=== PATIENT | female | born 1995 | race Caucasian/White ===

== ENCOUNTER → 2017-12-13 10:55 | Outpatient (CLI) | payer OTHER, SELFPAY ==
--- NOTE | 2017-12-13 | IMM_PTH ---
PATIENT: BARRY GUEVARA LOC: [facility] U#:[id number] AGE/SX: 30/F ROOM: RE12/13/[address]: Dr. Janet Solis MD : 1995 BED: DIS: SPEC #: [id number] RECD: 12/14/17 15:39 STATUS: FUNMI RENandini #: [id number] JESSI: 12/13/17 00:[address]: Janet Solis DEPT: IMMUNOHISTOCHEMISTRY RECD BY: Deana Mejía ENTERED: 12/14/17 15:40 SP TYPE: IMMUNO OTHR DR: Dr. Jorge Allred MD Tissues: A - Uterine cervix, NOS Procedures: p16 (initial) KI-67 (add) PHYSICIAN & INSTITUTION [place] [id number] SPECIMEN INFORMATION: Tissue Source: A ? Cervical biopsy Clinical Info: R87.612 Specimen Number: [id number] CPT code: 61202, 04315 METHODOLOGY: Deparaffinized sections of prefer/formalin-fixed tissue or PAP/DQ stained slides are incubated with monoclonal/polyclonal antibodies/oligonucleotide probes. Localization is made via biotin free immunoperoxidase method. Appropriate controls are performed and reacted as expected. Results on target cell population are indicated in the following table: RESULTS: ANTIBODY / CLONE RESULT Block A P16 (E6H4) Positive, block-like Ki-67 (30-9) Positive, moderate These tests were developed and their performance characteristics determined by [facility]. They may not have been cleared or approved by the U.[place]. Food and Drug Administration. The FDA has determined that such clearance or approval is not necessary. INTERPRETATION: A. Cervix, biopsy: Focal moderate squamous dysplasia, TOM II (HGSIL). AM:stephane 12/15/17
--- NOTE | 2017-12-13 09:00 | CER_PTH ---
PATIENT: BARYR GUEVARA LOC: [facility] U#:[id number] AGE/SX: 30/F ROOM: RE12/13/[address]: Dr. Janet Solis MD : 1995 BED: DIS: SPEC #: [id number] RECD: 12/13/17 14:37 STATUS: FUNMI CLAIRENandini #: [id number] JESSI: 12/13/17 09:[address]: Janet Solis DEPT: SURGICAL PATHOLOGY RECD BY: Juanito Burgos ENTERED: 12/13/17 14:37 SP TYPE: CERV OTHR DR: Dr. Jorge Allred MD Tissues: A - Uterine cervix, NOS B - Endocervical Procedures: Surgery Specimen Level IV HEADER OPERATION: Colposcopy PRE-OP DIAGNOSIS: R87.612 TISSUE SUBMITTED: A ? Cervical biopsy, B - ECC MICROSCOPIC DIAGNOSIS A. Cervix, biopsy: Mild and focal moderate dysplasia, TOM I-II (HGSIL). Squamous metaplasia and chronic inflammation. B. Endocervix, curettings: Scant strips of benign superficial endocervix. AM:stephane 12/14/17 COMMENT A. Results from Immunohistochemistry study ([id number]) for surrogate HPV marker p16, will be reported separately. MICROSCOPIC DESCRIPTION Slides are reviewed. GROSS DESCRIPTION A - Received in fixative is one container labeled with the patient's name and designated cervical biopsy. The specimen consists of two irregular fragments of light cerrato soft tissue that in aggregate measure 0.6 x 0.3 x 0.1 cm. The specimen is totally submitted in one cassette. B - Received in fixative is one container labeled with the patient's name and designated ECC. The specimen consists of light cerrato mucoid material that in aggregate measures 1 x 0.2 x <0.1 cm. The specimen is totally submitted in one cassette. / AM:stephane 12/13/17 TC:3 CPT: 12922 x2
== END ==
PROVIDERS: Family Provider Family Medicine; PCP Family Medicine; Visit Provider Obstetrics & Gynecology
DX: R87.612 Low grade squamous intraepithelial lesion on cytologic smear of cervix (LGSIL) (principal)
CPT/HCPCS: 88305; 88341; 88342

== ENCOUNTER 2017-12-24 12:56 | Day surgery (SDC) | payer OTHER, SELFPAY ==
[2017-12-24] VITALS (10 sets, daily range): BP systolic 93–112; BP diastolic 48–63; PULSE 68–89; RESP 14–20; TEMP 36.8–37.3; O2SAT 97–100; BMI 20.9
[2017-12-24 13:27] LABS: Internal QC Validated? YES +Cl - CLEAR BKGD
[2017-12-24 13:28] LABS: Pregnancy, Urine Negative Negative
[2017-12-24] MEDS: Vasopressin 20 UNITS/ML Vial (14:00)
--- NOTE | 2017-12-24 14:30 | CER_PTH ---
PATIENT: BARRY GUEVARA LOC: [facility] U#:[id number] AGE/SX: 22/ ROOM: RE12/24/[address]: Dr. Janet Solis MD : 1995 BED: DIS: 12/24/2017 SPEC #: [id number] RECD: 12/24/17 15:56 STATUS: FUNMI ANIVAL #: [id number] JESSI: 12/24/17 14:[address]: Janet Solis DEPT: SURGICAL PATHOLOGY RECD BY: Juanito Burgos ENTERED: 12/27/17 08:23 SP TYPE: CERV OTHR DR: Dr. Jorge Allred MD Tissues: Uterine cervix, NOS Procedures: Surgery Specimen Level V HEADER OPERATION: LEEP cone with ECC PRE-OP DIAGNOSIS: Low-grade squamous intraepithelial lesion on cytological smear of cervix TISSUE SUBMITTED: Ectocervix and endocervix MICROSCOPIC DIAGNOSIS Ectocervix and endocervix, LEEP conization: Minimal changes suspicious for HPV cytopathic effects. Chronic inflammation and squamous metaplasia. Resection margins are free of dysplastic changes. IRMA:stephane 12/28/17 COMMENT Please make reference to previous specimen ([id number]) cervix, biopsy with diagnosis of mild and focal moderate squamous dysplasia and endocervix, curettings with diagnosis of scant strips of benign superficial endocervix. MICROSCOPIC DESCRIPTION Slides are reviewed. GROSS DESCRIPTION Received in fixative is one container labeled with the patient's name and designated ectocervix and endocervix. The specimen consists of an unoriented piece of cerrato, indurated tissue consistent with LEEP conization measuring 1.6 x 1.2 cm and up to 0.8 cm in length. The cervical opening is slit-like. No mucosal lesion is identified. The nonmucosal surface is inked black and the endocervical margin is inked blue. The specimen is serially sectioned and submitted entirely in four cassettes with each cassette containing one quadrant. / IRMA:stephane 12/27/17 TC:5 [facility]: [id number]
[2017-12-24] MEDS: FERRIC SUBSULFATE 8 GM SOLN (15:04)
--- NOTE | 2017-12-24 15:10 | PCM.DC.LEE ---
Discharge Diet: No Restrictions - Increase water to 120 ounces daily x 72 hours Discharge Activity: Return to Normal Activity, May not drive while taking narcotic pain medications. Return to work on:: 12/27/17 May shower in (days): 0 - Today May resume sexual activity in: 3 weeks Weight Bearing Status: Full weight bearing Lifting Restrictions: none Additional Activity Instructions:: Ambulate often the week after surgery Call your doctor if you observe: Fever of 101 or Higher, Inability to urinate, Inability to have a bowel movement, Using more than one pad per hour Cleanse incision/area with: Soap & Water Allergies/Adverse Reactions: Allergies No Known Allergies Allergy (Unverified 12/20/17 08:11) Medications to take at Discharge NK [NK] 12/20/17 Primary Care Physician: Blaise Allred MD [Primary Care Provider] - Please Follow Up With: Janet Solis MD When: 1 week postop
--- NOTE | 2017-12-24 15:22 | PCM.OPRPT ---
Problem List (1) Cervical dysplasia Status: Acute Report of Operation Date of Procedure: 12/24/17 Pre-Operative Diagnosis: Moderate cervical dysplasia Post-Operative Diagnosis: Moderate cervical dysplasia Surgery/Procedure Performed:: Loop electrocautery excision of the cervix, endocervical curettage Description of Surgical Findings:: Nulligravida appearing cervix. The uterus was noted in an anteflexed position. Bilateral adnexa were benign. Lugol's application to the cervix revealed lack of stain uptake around the 6:00 region. Type of Anesthesia:: Local Anesthesiologist: Steven Galdamez Special Medications: 10 cc of diluted vasopressin to the cervix and 10 cc of 1% lidocaine to the cervix Specimen's removed: Ectocervix and endocervix Drains: None Estimated Blood Loss (mL): Minimal Fluids Replaced: Lactated Ringer's Description of Procedure: The patient presented to the surgery suite in the n.p.o. status. Patient was placed on the operating bed and underwent a MAC anesthetic. Once found to be adequate, the patient was placed in the dorsal lithotomy position via the Charly stirrups. The patient was prepped and draped in the normal sterile fashion. Bladder was emptied of urine which equals approximately 200 cc of clear urine via a straight catheter. Patient was draped followed by placement of a Myron-coated bivalve speculum to the vagina with suction attachment. The cervix had injection of 10 cc of 1 1% lidocaine to the 4 quadrants of the cervix as well as 10 cc of a diluted vasopressin to the cervix as well. Tolerated well. Lugol's staining of the cervix occurred to allow notation of area of removal. The LEEP was assembled and sequential movement of the top layer of the cervix occurred. Hemostasis was noted. The working curette device was then used to remove endocervical tissue which was sent away with the ectocervix which had been removed previously. The ball cautery was then used to cauterize the edges of the prior LEEP sampling of the cervix. Stasis was noted. Cells was placed of the cervix as well. Meds were removed from the vagina. Sponge, instrument counts and suture were correct ?2. Awakened in stable condition to be taken to recovery room for discharge later today. Grafts/Implants Used: None - Complications None - Admit VTE Documentation VTE Present on Admission: No VTE Mechan Device Prophylaxis: [facility] VTE Pharm Prophylaxis ordered?: No Reason prophylaxis not ordered:: Treatment Not Indicated
--- NOTE | 2017-12-24 15:29 | OP.PCM_ITS ---
Problem List (1) Cervical dysplasia Status: Acute Report of Operation Date of Procedure: 12/24/17 Pre-Operative Diagnosis: Moderate cervical dysplasia Post-Operative Diagnosis: Moderate cervical dysplasia Surgery/Procedure Performed:: Loop electrocautery excision of the cervix, endocervical curettage Description of Surgical Findings:: Nulligravida appearing cervix. The uterus was noted in an anteflexed position. Bilateral adnexa were benign. Lugol's application to the cervix revealed lack of stain uptake around the 6:00 region. Type of Anesthesia:: Local Anesthesiologist: Steven Galdamez Special Medications: 10 cc of diluted vasopressin to the cervix and 10 cc of 1% lidocaine to the cervix Specimen's removed: Ectocervix and endocervix Drains: None Estimated Blood Loss (mL): Minimal Fluids Replaced: Lactated Ringer's Description of Procedure: The patient presented to the surgery suite in the n.p.o. status. Patient was placed on the operating bed and underwent a MAC anesthetic. Once found to be adequate, the patient was placed in the dorsal lithotomy position via the Charly stirrups. The patient was prepped and draped in the normal sterile fashion. Bladder was emptied of urine which equals approximately 200 cc of clear urine via a straight catheter. Patient was draped followed by placement of a Myron- coated bivalve speculum to the vagina with suction attachment. The cervix had injection of 10 cc of 1 1% lidocaine to the 4 quadrants of the cervix as well as 10 cc of a diluted vasopressin to the cervix as well. Tolerated well. Lugol 's staining of the cervix occurred to allow notation of area of removal. The LEEP was assembled and sequential movement of the top layer of the cervix occurred. Hemostasis was noted. The working curette device was then used to remove endocervical tissue which was sent away with the ectocervix which had been removed previously. The ball cautery was then used to cauterize the edges of the prior LEEP sampling of the cervix. Stasis was noted. Cells was placed of the cervix as well. Meds were removed from the vagina. Sponge, instrument counts and suture were correct ?2. Awakened in stable condition to be taken to recovery room for discharge later today. Grafts/Implants Used: None - Complications None - Admit VTE Documentation VTE Present on Admission: No VTE Mechan Device Prophylaxis: [facility] [place]TE Pharm Prophylaxis ordered?: No Reason prophylaxis not ordered:: Treatment Not Indicated
== END 2017-12-24 17:04 | disposition home or self-care (01) ==
LOC: SDC 12:57 → AC 12:58
PROVIDERS: Anesthesiology; Family Provider Family Medicine; PCP Family Medicine; Visit Provider Obstetrics & Gynecology
PROC: 0UBC7ZZ Excision of Cervix, Via Natural or Artificial Opening (ICD-10-PCS; CPT 57522; principal; 2017-12-24 14:15)
DX: N87.1 Moderate cervical dysplasia (principal)
CPT/HCPCS: 57522; 81025; 88307; J7120; J2405

== ENCOUNTER → 2018-03-09 13:38 | Outpatient (CLI) | payer SELFPAY ==
[2018-03-16 11:14] LABS: HPV Reflexed? NOT INDICATED
== END ==
LOC: LABSPEC 13:41
PROVIDERS: Visit Provider Obstetrics & Gynecology
DX: R87.612 Low grade squamous intraepithelial lesion on cytologic smear of cervix (LGSIL) (principal)
CPT/HCPCS: 88175; G0145

== ENCOUNTER → 2018-07-20 16:08 | Outpatient (CLI) | payer SELFPAY ==
[2018-07-26 10:53] LABS: HPV Reflexed? NOT INDICATED
== END ==
LOC: LABSPEC 16:09
PROVIDERS: Visit Provider Obstetrics & Gynecology
DX: R87.613 High grade squamous intraepithelial lesion on cytologic smear of cervix (HGSIL) (principal)
CPT/HCPCS: 88175; G0145

== ENCOUNTER → 2022-11-05 | Outpatient (CLI) | payer OTHER, SELFPAY ==
[2022-11-05 13:09] LABS: NATERA MAILED SPECIMEN
[2022-11-05 13:40] LABS: Absolute Lymphocyte Count 1.56 X10^3/uL (0.83-4.51); Absolute Neutrophil Count 8.5 X10^3/uL (2.0-7.7); Basophil# 0.04 X10^3/uL; Basophil% 0.4 % (0-1); Eosinophil# 0.07 X10^3/uL; Eosinophils% 0.7 % (0-5); Hematocrit 45.8 % (37-47); Hemoglobin 15.9 g/dL (12.0-15.0); Lymphocyte # 1.56 X10^3/ul (0.83-4.51); Lymphocyte % 14.7 % (19-41); Mean Corp Hgb Conc 34.7 g/dL (32-36); Mean Corpuscular Hgb 31.5 pg (27.0-32.0); Mean Corpuscular Volume 90.9 fL (81-99); Mean Platelet Vol. 10.4 fl (6.2-12.0); Monocyte# 0.43 X10^3/uL; Monocyte% 4.1 % (0-10); NRBC Flagged by Analyzer 0 % (0-5); Neutrophil # 8.45 X10^3/uL (2.7-7.7); Neutrophil % 79.8 % (47-70); Platelet Count 352 K/mm3 (150-450); RBC Distribution Width SD 40.4 fl (35.1-43.9); Red Blood Count 5.04 M/mm3 (4.2-5.4); White Blood Count 10.6 K/mm3 (4.4-11.0)
[2022-11-05 14:43] LABS: HIV - WCH Non-Reactive (Nonreactive); Hepatitis B Surface Antigen Non-Reactive (Nonreactive); Hepatitis C Antibody Non-Reactive (Nonreactive); Rubella IgG Reactive (Nonreactive); Syphilis Antibodies Non-reactive
[2022-11-10 08:04] LABS: Chlamydia By Nucleic Acid AMP Negative (Negative)
[2022-11-11 21:16] LABS: HPV Reflexed? NOT INDICATED
[2022-11-12 21:40] LABS: Gonococcus By Nucleic Acid AMP Negative (Negative)
== END | disposition home or self-care (01) ==
PROVIDERS: Referring Provider Obstetrics & Gynecology; Visit Provider Obstetrics & Gynecology
DX: Z34.90 Encounter for supervision of normal pregnancy, unspecified, unspecified trimester (principal)
CPT/HCPCS: 36415; 85025; 86703; 86762; 86780; 86803; 86850; 86900; 86901; 87086; 87088; 87340; 87491; 87591; 88175; G0145

== ENCOUNTER → 2022-12-31 | Outpatient (CLI) | payer OTHER, SELFPAY ==
[2022-12-31 13:34] VITALS: BP 99/64; PULSE 83; RESP 17; TEMP 36.1; O2SAT 98; BMI 24.0
[2022-12-31] MEDS: Dextrose 5%-Lactated Ringers 1,000 ML 999 ML IV (13:41)
[2022-12-31] MEDS: 0.9% NaCl Peripheral Flush Adult/Peds IV (13:42)
[2022-12-31] MEDS: Ondansetron 4 MG/2 ML Vial IV (13:42)
[2022-12-31 14:53] VITALS: BP 96/58; PULSE 75
== END | disposition home or self-care (01) ==
PROVIDERS: Referring Provider Obstetrics & Gynecology; Visit Provider Obstetrics & Gynecology
DX: E86.0 Dehydration (principal)
CPT/HCPCS: 96374; 96361; A4216; J2405

== ENCOUNTER → 2023-02-01 | Outpatient (CLI) | payer OTHER, SELFPAY | END | disposition home or self-care (01) | LOC: LABSPEC 15:17 | PROVIDERS: Visit Provider Nurse Practitioner Women's Health | DX: O23.40 Unspecified infection of urinary tract in pregnancy, unspecified trimester (principal); Z3A.00 Weeks of gestation of pregnancy not specified | CPT/HCPCS: 87086; 87088 ==

== ENCOUNTER → 2023-02-25 | Outpatient (CLI) | payer OTHER, SELFPAY ==
[2023-02-25 13:34] LABS: Absolute Lymphocyte Count 1.71 X10^3/uL (0.83-4.51); Absolute Neutrophil Count 7.6 X10^3/uL (2.0-7.7); Basophil# 0.04 X10^3/uL; Basophil% 0.4 % (0-1); Eosinophil# 0.11 X10^3/uL; Eosinophils% 1.1 % (0-5); Hematocrit 41.3 % (37-47); Hemoglobin 14.3 g/dL (12.0-15.0); Lymphocyte # 1.71 X10^3/ul (0.83-4.51); Lymphocyte % 16.8 % (19-41); Mean Corp Hgb Conc 34.6 g/dL (32-36); Mean Corpuscular Hgb 31.5 pg (27.0-32.0); Mean Platelet Vol. 10.1 fl (6.2-12.0); Monocyte# 0.59 X10^3/uL; Monocyte% 5.8 % (0-10); NRBC Flagged by Analyzer 0 % (0-5); Neutrophil # 7.62 X10^3/uL (2.7-7.7); Neutrophil % 74.9 % (47-70); Platelet Count 356 K/mm3 (150-450); RBC Distribution Width CV 12.6 % (11.6-14.6); RBC Distribution Width SD 41.6 fl (35.1-43.9); Red Blood Count 4.54 M/mm3 (4.2-5.4); White Blood Count 10.2 K/mm3 (4.4-11.0)
[2023-02-25 14:04] LABS: Glucose Challenge Gest 1H 50g 96 mg/dL (70-140)
[2023-02-25 14:35] LABS: HIV - WCH Non-Reactive (Nonreactive); Syphilis Antibodies Non-reactive
== END | disposition home or self-care (01) ==
LOC: LAB 12:33
PROVIDERS: Referring Provider Obstetrics & Gynecology; Visit Provider Obstetrics & Gynecology
DX: O09.90 Supervision of high risk pregnancy, unspecified, unspecified trimester (principal); Z3A.00 Weeks of gestation of pregnancy not specified
CPT/HCPCS: 36415; 82950; 85025; 86703; 86780

== ENCOUNTER → 2023-04-27 | Outpatient (CLI) | payer OTHER, SELFPAY | END | disposition home or self-care (01) | LOC: LABSPEC 15:54 | PROVIDERS: Referring Provider Obstetrics & Gynecology; Visit Provider Obstetrics & Gynecology | DX: O09.90 Supervision of high risk pregnancy, unspecified, unspecified trimester (principal); Z3A.00 Weeks of gestation of pregnancy not specified | CPT/HCPCS: 87081 ==

== ENCOUNTER 2023-05-26 10:31 | Inpatient (IN) | payer OTHER, SELFPAY ==
[2023-05-26] VITALS (78 sets, daily range): BP systolic 63–173; BP diastolic 30–114; PULSE 71–116; TEMP 35.8–37.1; O2SAT 82–100; BMI 27.8
[2023-05-26 10:25] LABS: ROM Internal Control Test YES-OK TO RESULT pt. (Internal QC)
[2023-05-26 10:26] LABS: ROM Patient Test POSITIVE (Negative); Record Kit Lot#, ROM+ K1374
[2023-05-26] MEDS: Lactated Ringers 1,000 ML 50 ML IV (10:45)
[2023-05-26 11:05] LABS: Absolute Lymphocyte Count 2.11 X10^3/uL (0.83-4.51); Absolute Neutrophil Count 10.1 X10^3/uL (2.0-7.7); Basophil# 0.07 X10^3/uL; Basophil% 0.5 % (0-1); Eosinophils% 0.8 % (0-5); Hematocrit 47.1 % (37-47); Hemoglobin 15.7 g/dL (12.0-15.0); Lymphocyte # 2.11 X10^3/ul (0.83-4.51); Lymphocyte % 15.9 % (19-41); Mean Corp Hgb Conc 33.3 g/dL (32-36); Mean Corpuscular Hgb 30.5 pg (27.0-32.0); Mean Corpuscular Volume 91.6 fL (81-99); Mean Platelet Vol. 10.8 fl (6.2-12.0); Monocyte# 0.76 X10^3/uL; Monocyte% 5.7 % (0-10); NRBC Flagged by Analyzer 0 % (0-5); Neutrophil # 10.11 X10^3/uL (2.7-7.7); Neutrophil % 76.3 % (47-70); Platelet Count 359 K/mm3 (150-450); RBC Distribution Width CV 12.9 % (11.6-14.6); RBC Distribution Width SD 43.6 fl (35.1-43.9); Red Blood Count 5.14 M/mm3 (4.2-5.4); White Blood Count 13.3 K/mm3 (4.4-11.0)
[2023-05-26] MEDS: Oxytocin 15 Units/NS 250ml 15 UNITS/250 ML IV.SOLN 2 UNITS IV (11:38)
[2023-05-26 11:42] LABS: Syphilis Antibodies Non-reactive
[2023-05-26] MEDS: LACTATED RINGERS 500 ML 999 ML IV ×3 (12:56→20:48)
[2023-05-26] MEDS: fentaNYL-bupivacaine (epidural) 100 ML BAG EPIDURAL ×2 (13:42→21:01)
[2023-05-26] MEDS: Ondansetron 4 MG/2 ML Vial IV ×2 (14:01→20:45)
[2023-05-26] MEDS: Lactated Ringers 1,000 ML 200 ML IV (18:58)
[2023-05-26] MEDS: Oxytocin 15 Units/NS 250ml 15 UNITS/250 ML IV.SOLN 83 UNITS IV (22:38)
[2023-05-26] MEDS: Oxytocin 10 UNITS/ML Vial IM (22:43)
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
--- NOTE | 2023-05-26 23:02 | OP.PCM_ITS ---
Assessment & Plan (1) UTI in : COMMENT: Rx macrobid Culture NEGATIVE (2) Supervision of high risk , antepartum: COMMENT: PRR , HUMAIRA 05/31/23, boy, NINO Mcwilliams, [place] (3) : QUALIFIERS: Weeks of gestation: 40 weeks Qualified Code(s): Z3A.40 - 40 weeks gestation of COMMENT: GBS neg, NIPT low risk, declined carrier testing, nl anatomy (4) Asthma: COMMENT: exercise induced Maternal Data Information HUMAIRA Calculator Estimated Delivery Date Method Current WG Current Estimate 05/21/23 Ultrasound #1 40w 5d Other Estimates 05/31/23 LMP (Certain) 39w 2d Final HUMAIRA: 05/21/23 Final HUMAIRA Source: US <20 weeks Vaginal Delivery Maternal Presentation Maternal Presentation: Spontaneous Rupture of Membranes Type of Induction: Pitocin Operative Information Date of Procedure: 05/26/23 Pre-Operative Diagnosis: 28 y/o @ 40 weeks 5 days, SROM Post-Operative Diagnosis: 28 y/o @ 40 weeks 5 days, SROM Surgery / Procedure Performed: Spontaneous Vaginal Delivery Type of Anesthesia: Epidural Estimated Blood Loss: 100cc Findings Description of Procedure: Patient began pushing and delivered the head in the PABLO presentation. The head was delivered atraumatically. The anterior and posterior shoulders delivered without complication followed by the rest of the infant and the was placed on the maternal abdomen. Delayed cord clamping was employed for approximately 60 seconds. Cord was clamped and cut and gentle traction was applied to the cord and the placenta delivered spontaneously immediately following it was noted to be intact with three-vessel cord. The perineum and vagina were inspected and noted to have a 1st degree laceration, repaired with a 2-0 vicryl. EBL was 100 cc. Patient and tolerated delivery well. Presentation: PABLO Amniotic Membrane Rupture Type: Spontaneous Amniotic Fluid Description: Clear Placental Delivery Description: Spontaneous Placenta Disposition: [facility] Cord Vessel Description: 3 Vessels Cord Entanglement: None Infant A Gender: Male (1 minute): 7 (5 minute): 8 Delayed Cord Clamping: Yes Post Vaginal Delivery Medications Given After Delivery: IV Pitocin Episiotomy Description: None Laceration: 1st degree Complication Complications: None Multi Select Codes Urinary/Genital Urinary/Genital CPT Codes: 82733 Vaginal Delivery [facility]
--- NOTE | 2023-05-26 23:04 | DCINST_ITS ---
Discharge Instructions Diet Discharge Diet: No restrictions Activity Discharge Activity: Return to Normal Activity, May Not Drive (while taking narcotic pain medications.) and May Shower May resume sexual activity in: 4-6 weeks Dressing / Incision Call your doctor if your incision/area has: Continuous Slow Oozing, Sudden Increased Bleeding, Increased Pain/ Swelling, Increased Redness and Foul Smelling Discharge Follow Up Care Please Follow Up With: Joytsna Thompson, DO When: Call [phone] to make an appointment with your doctor in 6 weeks. If you had elevated blood pressure or 4th degree laceration, you will need to be seen in 2 weeks. Test Results: Test results from this visit will be discussed in further detail at your follow- up appointment, if applicable. Discharge Plan Admission Admit Date/Time: 05/26/23 10:31 Attending Provider: Jyotsna Thompson Primary Care Provider: Care Physician,No Primary Discharge Orders/Prescriptions Prescriptions: No Action PNV-[place] 28-1-300 mg capsule 1 cap PO DAILY Referrals / Follow Up: Care Physician,No Primary [Primary Care Provider] -
[2023-05-27] VITALS (19 sets, daily range): BP systolic 101–118; BP diastolic 52–71; PULSE 66–108; RESP 16; TEMP 36.2–36.9; O2SAT 90–100
[2023-05-27] MEDS: Naproxen 500 MG Tablet PO ×3 (01:02→17:29)
[2023-05-27] MEDS: Acetaminophen 500 MG Tablet 1000 MG PO ×2 (04:44→10:43)
--- NOTE | 2023-05-27 05:33 | NURSING ---
tylenol at 0444 back charted from downtime.
--- NOTE | 2023-05-27 07:52 | PN.OBGYN_ITS ---
Subjective Subjective Patient doing well without complaints. Tolerating PO. Ambulating and voiding without difficulty. Feeding well. Denies chest pain, shortness of breath, calf pain/swelling, fevers, chills, lightheadedness. Objective Data Objective Data Vital Signs: Vital Signs Temp Pulse Resp BP Pulse Ox 97.6 F L 86 16 116/64 90 05/27/23 04:25 05/27/23 04:05/27/23 04:05/27/23 04:05/27/23 00:59 Weight: 162 lb 2 oz Body Mass Index (BMI) 27.8 Intake & Output: Intake and Output for Last 24 Hours 05/25/23 05/26/23 05/27/23 23:59 23:59 23:59 Intake Total 3251.70 / 3251.70 250 / 250 Output Total 400 / 400 700 / 700 Balance 2851.70 / 2851.70 -450 / -450 Lab / Micro Data 05/26/23 10:45 Labs: Laboratory Results - last 24 hr 05/26/23 09:50: Vag Amniotic Fld Detect POSITIVE H 05/26/23 10:45: WBC 13.3 H, RBC 5.14, Hgb 15.7 H, Hct 47.1 H, MCV 91.6, MCH 30.5, MCHC 33.3, RDW Std Deviation 43.6, RDW Coeff of [place] 12.9, Plt Count 359, MPV 10.8, Immature Gran % (Auto) 0.800, Neut % (Auto) 76.3 H, Lymph % (Auto) 15.9 L, [place] % (Auto) 5.7, Eos % (Auto) 0.8, Baso % (Auto) 0.5, Absolute Neuts (auto) 10.1 H, Absolute Lymphs (auto) 2.11, Nucleated RBC % 0, Syphilis Total Ab Non-reactive, Blood Type O POSITIVE, Antibody Screen NEGATIVE Physical Exam Const alert and oriented x3 HEENT normocephalic Eyes PERRL Neck full ROM Resp normal respiratory effort GI soft to palpation GI Narrative: FF below U Assessment & Plan (1) Spontaneous vaginal delivery: COMMENT: 05/26/23 Boy Josh JV PLAN: Plan s/p PPD # 1 1. routine post delivery care 2. breast feeding- support given 3. rh positive 4. rubella immune
[2023-05-27] MEDS: Senna/Docusate Sodium 1 Tablet PO (09:19)
[2023-05-27] MEDS: Benzocaine/Lanolin/Aloe Vera 1 SPRAY EACH TOPICAL (10:43)
[2023-05-28 01:51] VITALS: BP 106/63; PULSE 85; RESP 16; TEMP 36.6; O2SAT 96
[2023-05-28] MEDS: Acetaminophen 500 MG Tablet 1000 MG PO (02:00)
--- NOTE | 2023-05-28 09:26 | PCM.PN.OB ---
Subjective Subjective Patient doing well without complaints. Tolerating PO. Ambulating and voiding without difficulty. Feeding well. Denies chest pain, shortness of breath, calf pain/swelling, fevers, chills, lightheadedness. Objective Data Objective Data Vital Signs: Vital Signs Temp Pulse Resp BP Pulse Ox O2 Del Method 97.9 F 85 16 106/63 96 Room Air 05/28/23 01:51 05/28/23 01:51 05/28/23 01:51 05/28/23 01:51 05/28/23 01:51 05/28/23 01:51 Oxygen Delivery Method Room Air Weight: 162 lb 2 oz Body Mass Index (BMI) 27.8 Intake & Output: Intake and Output for Last 24 Hours 05/26/23 05/27/23 05/28/23 23:59 23:59 23:59 Intake Total 3251.70 / 3251.70 250 / 250 Output Total 400 / 400 1000 / 1000 Balance 2851.70 / 2851.70 -750 / -750 Lab / Micro Data 05/26/23 10:45 Physical Exam Const alert and oriented x3 HEENT normocephalic Eyes PERRL Neck full ROM Resp normal respiratory effort GI soft to palpation GI Narrative: FF below U Assessment & Plan (1) Spontaneous vaginal delivery: COMMENT: 05/26/23 [facility] MAIN PLAN: s/p PPD # 2 1. routine post delivery care 2. breast feeding- support given 3. rh positive 4. rubella immune 5.d/c home today (2) Asthma: COMMENT: exercise induced
[2023-05-28 09:53] VITALS: BP 106/73; PULSE 120; RESP 16; TEMP 36.3; O2SAT 95
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
[2023-05-28] MEDS: Naproxen 500 MG Tablet PO (10:46)
== END 2023-05-28 12:15 | disposition home or self-care (01) | DRG 807 ==
LOC: WPOUT 10:32 → WP 22:46
PROVIDERS: Admitting Provider Obstetrics & Gynecology; Referring Provider Obstetrics & Gynecology; Visit Provider Obstetrics & Gynecology
DX: O42.92 Full-term premature rupture of membranes, unspecified as to length of time between rupture and onset of labor (principal); Z37.0 Single live birth; O70.0 First degree perineal laceration during delivery; Z3A.40 40 weeks gestation of pregnancy
CPT/HCPCS: 59025; 59050; 84112; 85025; 86780; 86850; 86900; 86901; 99221; J7120; G0378; J2405

== ENCOUNTER → 2024-06-01 | Outpatient (CLI) | payer SELFPAY | END | disposition home or self-care (01) | DX: Z03.818 Encounter for observation for suspected exposure to other biological agents ruled out (principal) | CPT/HCPCS: 87811 ==

== ENCOUNTER → 2024-07-17 | Outpatient (CLI) | payer OTHER, SELFPAY | END | disposition home or self-care (01) | LOC: LABSPEC 16:37 | PROVIDERS: Referring Provider Obstetrics & Gynecology; Visit Provider Obstetrics & Gynecology | DX: N89.8 Other specified noninflammatory disorders of vagina (principal) | CPT/HCPCS: 87070; 87205 ==

== ENCOUNTER → 2024-07-27 | Outpatient (CLI) | payer OTHER, SELFPAY ==
[2024-07-27 10:37] LABS: Absolute Neutrophil Count 2.5 X10^3/uL (2.0-7.7); Basophil# 0.04 X10^3/uL; Basophil% 0.9 % (0-1); Eosinophil# 0.09 X10^3/uL; Eosinophils% 1.9 % (0-5); Hematocrit 44.3 % (37-47); Hemoglobin 14.6 g/dL (12.0-15.0); Lymphocyte % 36.6 % (19-41); Mean Corpuscular Hgb 29.9 pg (27.0-32.0); Mean Corpuscular Volume 90.8 fL (81-99); Mean Platelet Vol. 10.6 fl (6.2-12.0); Monocyte# 0.29 X10^3/uL; Monocyte% 6.3 % (0-10); NRBC Flagged by Analyzer 0 % (0-5); Neutrophil # 2.51 X10^3/uL (2.7-7.7); Neutrophil % 54.1 % (47-70); Platelet Count 325 K/mm3 (150-450); RBC Distribution Width CV 12.4 % (11.6-14.6); RBC Distribution Width SD 40.8 fl (35.1-43.9); Red Blood Count 4.88 M/mm3 (4.2-5.4); White Blood Count 4.6 K/mm3 (4.4-11.0)
[2024-07-27 10:42] LABS: Erythrocyte Sedimentation Rate < 1 mm/hr (0-30)
[2024-07-27 10:55] LABS: Hemoglobin A1c 4.9 % (3.8-5.6)
[2024-07-27 11:07] LABS: Vitamin B12 973 pg/mL (211-911); Vitamin D,25 Hydroxy 32.6 ng/mL
[2024-07-27 11:18] LABS: ALB/GLOB Ratio 1.3 RATIO (0.9-2.4); AST(SGOT) 14 U/L (15-37); Alanine Aminotransfer ALT/SGPT 14 U/L (13-56); Albumin, Serum 3.9 g/dL (3.2-5.0); Alkaline Phosphatase 95 U/L (45-117); Anion Gap 6 (5-15); BUN 7 mg/dL (7-18); BUN/Creat Ratio 8.6 RATIO (10-20); CRP < 2.90 mg/L (0.0-3.0); Calcium,Total 8.9 mg/dL (8.5-10.1); Chloride 108 mmol/L (98-107); Cholesterol 142 mg/dL (200); Creatinine, Serum 0.82 mg/dL (0.55-1.02); EST Glomerular Filtration Rate 87 mL/min (>60); Est Glom Filt Rate - Afr Amer 106 mL/min (>60); Globulin 3.1 g/dL (2.2-4.2); Glucose 90 mg/dL (74-106); High Density Lipoprotein 48 mg/dL; Magnesium 2.2 mg/dL (1.6-2.6); Potassium 3.9 mmol/L (3.5-5.1); Sodium Level 140 mmol/L (136-145); T4 Free Direct 1.01 ng/dL (0.76-1.46); Triglycerides 82 mg/dL; Very Low Density Lipoprotein 16 mg/dL (5-40)
[2024-07-28 05:08] LABS: Insulin Level 8.5 uIU/mL (2.6-24.9)
== END | disposition home or self-care (01) ==
PROVIDERS: PCP Student in an Organized Health Care Education/Training Program; Referring Provider Student in an Organized Health Care Education/Training Program; Visit Provider Student in an Organized Health Care Education/Training Program
DX: Z00.00 Encounter for general adult medical examination without abnormal findings (principal); R25.1 Tremor, unspecified; R53.83 Other fatigue; R07.9 Chest pain, unspecified; R00.2 Palpitations
CPT/HCPCS: 36415; 80053; 80061; 82306; 82533; 82607; 83036; 83525; 83735; 84439; 84443; 85025; 85652; 86140

== ENCOUNTER → 2024-08-04 | Outpatient (CLI) | payer OTHER, SELFPAY ==
--- NOTE | 2024-08-04 08:08 | EKG12_ITS ---
Test Reason : PALPS Blood Pressure : / mmHG Vent. Rate : 094 BPM Atrial Rate : 094 BPM P-R Int : 116 ms QRS Dur : 084 ms QT Int : 358 ms P-R-T Axes : 084 070 016 degrees QTc Int : 447 ms Normal sinus rhythm Normal ECG Confirmed by NADIR DAO, SOFIA ([id number]), newspaper photo editor JOSÉ MIGUEL DAVIES ([id number]) on 08/04/2024 1:36:23 PM Referred By: Obie Ledbetter Confirmed By:SOFIA SCHMITZ MD
== END | disposition home or self-care (01) ==
PROVIDERS: PCP Student in an Organized Health Care Education/Training Program; Referring Provider Student in an Organized Health Care Education/Training Program; Visit Provider Student in an Organized Health Care Education/Training Program
DX: R07.9 Chest pain, unspecified (principal); R00.2 Palpitations
CPT/HCPCS: 93005

== ENCOUNTER → 2024-08-07 | Outpatient (CLI) | payer OTHER, SELFPAY ==
[2024-08-09 15:08] LABS: H. PYLORI STOOL AG Negative (Negative)
== END | disposition home or self-care (01) ==
PROVIDERS: PCP Student in an Organized Health Care Education/Training Program; Referring Provider Student in an Organized Health Care Education/Training Program; Visit Provider Student in an Organized Health Care Education/Training Program
DX: Z00.00 Encounter for general adult medical examination without abnormal findings (principal); R53.83 Other fatigue; R07.9 Chest pain, unspecified; R00.2 Palpitations
CPT/HCPCS: 87338

== ENCOUNTER → 2024-08-18 | Outpatient (CLI) | payer OTHER, SELFPAY ==
--- NOTE | 2024-08-18 12:55 | ECHOD_ITS ---
Reason For Study: Chest pain, palps Procedure This was a 2D Doppler, Color Flow transthoracic echocardiogram. Exam performed in department. Left Ventricle Normal left ventricle. Left ventricular systolic function is normal. The left ventricular ejection fraction is 60 %. The global longitudinal strain is normal. The global longitudinal strain = -21.6 % (normal). No regional wall motion abnormalities noted. Right Ventricle Normal RV size. Normal systolic function. Atria Normal left atrium. Normal right atrium. Mitral Valve Normal mitral valve. Tricuspid Valve Normal tricuspid valve. Mild tricuspid valve insufficiency. Pulmonary artery systolic pressure is 16 mmHg. Aortic Valve Trisinus/trileaflet aortic valve. Pulmonic Valve Normal pulmonic valve. Great Vessels Normal aortic root. The pulmonary artery is normal size. Inferior vena cava collapse with respiration. Pericardium/Pleural No pericardial effusion. MMode/2D Measurements & Calculations LVIDd: 4.5 cm IVSd: 0.75 cm Ao root diam: 2.7 cm LVIDs: 2.9 cm LVPWd: 0.75 cm RVDd: 3.1 cm FS: 36.6 % LAV(MOD-bp): 24.8 ml LVAd ap4: 24.1 cm2 LVAd ap2: 24.0 cm2 LAV(MOD-bp) Indexed: 15.2 ml/m2 LVLd ap4: 7.5 cm LVLd ap2: 7.7 cm LAV(MOD-sp2): 27.4 ml EDV(MOD-sp4): 65.6 ml EDV(MOD-sp2): 65.1 ml LAV(MOD-sp4): 22.3 ml EDV(sp4-el): 65.8 ml EDV(sp2-el): 63.7 ml LVAs ap4: 13.4 cm2 LVAs ap2: 13.5 cm2 LVLs ap4: 6.3 cm LVLs ap2: 6.4 cm ESV(MOD-sp4): 25.0 ml ESV(MOD-sp2): 24.3 ml ESV(sp4-el): 24.2 ml ESV(sp2-el): 24.0 ml EF(MOD-sp4): 61.9 % EF(MOD-sp2): 62.6 % EF(sp4-el): 63.3 % SV(MOD-sp4): 40.6 ml SV(MOD-sp2): 40.7 ml SV(sp4-el): 41.7 ml LA dimension(2D): 2.8 cm LA A4 area: 11.3 cm2 RA A4 area: 11.6 cm2 TAPSE: 2.1 cm Time Measurements MV dec time: 0.22 sec Doppler Measurements & Calculations MV E max donis: 74.9 cm/sec Lat Peak E' Donis: 19.1 cm/sec Med Peak E' Donis: 15.9 cm/sec MV A max donis: 50.8 cm/sec E/E' lat: 3.9 E/E' med: 4.7 MV E/A: 1.5 MV dec slope: 340.1 cm/sec2 Ao V2 max: 116.8 cm/sec LV V1 max: 106.7 cm/sec Ao max P.5 mmHg LV V1 max P.6 mmHg Ao V2 mean: 80.8 cm/sec LV V1 mean P.6 mmHg Ao mean P.0 mmHg LV V1 mean: 76.1 cm/sec Ao V2 VTI: 25.6 cm LV V1 VTI: 23.7 cm AV (velocity ratio): 0.92 PA V2 max: 68.1 cm/sec TR max donis: 185.6 cm/sec TR max P.8 mmHg ECHO/Echo Complete Interpretation Summary Normal left ventricle. Left ventricular systolic function is normal. The left ventricular ejection fraction is 60 %. The global longitudinal strain is normal. The global longitudinal strain = -21.6 % (normal). Ordering Physician: Obie Ledbetter Referring Physician: Obie Ledbetter Performed By: Katelin Perea RDCS
== END | disposition home or self-care (01) ==
LOC: CVS 12:53
PROVIDERS: PCP Student in an Organized Health Care Education/Training Program; Referring Provider Student in an Organized Health Care Education/Training Program; Visit Provider Student in an Organized Health Care Education/Training Program
DX: R07.9 Chest pain, unspecified (principal); R00.2 Palpitations; R01.2 Other cardiac sounds
CPT/HCPCS: 93306